=== PATIENT | male | born 1975 | race Caucasian/White ===

== ENCOUNTER 2020-06-11 07:29 | Emergency (ER) | payer BC ==
[~2020-06-11] VITALS: Ht 180.3 cm; Wt 120.2 kg
[2020-06-11 07:30] VITALS: BP_SYST 149
== END 2020-06-11 08:39 | disposition home or self-care (01) ==
LOC: SED 07:29
DX: J06.9 Acute upper respiratory infection, unspecified (principal); I10 Essential (primary) hypertension; E11.9 Type 2 diabetes mellitus without complications; Z88.1 Allergy status to other antibiotic agents; Z20.828 Contact with and (suspected) exposure to other viral communicable diseases
CPT/HCPCS: 86710; 99283; U0003; C9803

== ENCOUNTER 2021-08-07 16:07 | Emergency (ER) | payer BC, SELFPAY ==
[~2021-08-07] VITALS: Ht 180.3 cm; Wt 120.2 kg
[2021-08-07 16:10] VITALS: BP_SYST 141
[2021-08-07 18:58] LABS: BASOPHILS # (AUTO) 0.1 K/uL (0.0-0.2); BASOPHILS % (AUTO) 0.6 % (0.0-2.0); EOSINOPHILS # (AUTO) 0.4 K/uL (0.0-0.4); EOSINOPHILS % (AUTO) 3.5 % (0.0-4.0); HEMATOCRIT 41.6 % (36-54); HEMOGLOBIN 13.8 g/dL (14.0-18.0); LYMPHOCYTES # (AUTO) 1.3 K/uL (1.0-5.5); LYMPHOCYTES % (AUTO) 12.4 % (20.5-51.5); MEAN CORPUSCULAR HEMOGLOBIN 29 pg (27-31); MEAN CORPUSCULAR HGB CONC 33 % (32-36); MEAN CORPUSCULAR VOLUME 88 fL (79.0-98.0); MONOCYTES # (AUTO) 0.5 K/uL (0.0-1.0); NEUTROPHILS # (AUTO) 8.3 K/uL (1.8-7.7); NEUTROPHILS % (AUTO) 78.5 % (40.0-70.0); PLATELET COUNT (AUTO) 283 K/uL (130-430); RED BLOOD CELL COUNT(AUTO) 4.73 MIL/uL (4.2-6.2); WHITE BLOOD COUNT (AUTO) 10.5 K/uL (4.8-10.8)
[2021-08-07 19:16] LABS: CALCIUM 9.2 mg/dL (8.4-11.0); CREATININE 0.89 mg/dL (0.55-1.30)
[2021-08-07 19:20] LABS: ALBUMIN 3.5 g/dL (3.4-4.8); TOTAL BILIRUBIN 0.2 mg/dL (0.0-1.0)
[2021-08-07] MEDS ORDERED: MORPHINE 4 MG INJ. 4 MG/ML VIAL IVP ONE (21:30)
[2021-08-07] MEDS ORDERED: VANCOMYCIN HCL 1,000 MG in NS 250 ML IV ONE (21:30)
[2021-08-07] MEDS ORDERED: VANCOMYCIN HCL 1000 MG/VIAL IV ONE (23:04)
[2021-08-08] MEDS ORDERED: ACETAMINOPHEN 500 MG TABLET PO ONE (00:30)
[2021-08-08] MEDS ORDERED: MORPHINE 4 MG INJ. 4 MG/ML VIAL IVP ONE (00:30)
[2021-08-08 02:30] VITALS: BP_SYST 122
[2021-08-08] MEDS ORDERED: HYDROcodone/ACETAMIN 10-325 MG TAB PO ONE (02:30)
[2021-08-08] MEDS ORDERED: NALO4SPR NS (03:23)
[2021-08-08] MEDS ORDERED: FUROSEMIDE 40 MG/4 ML VIAL IVP SCH (09:00)
== END 2021-08-08 03:45 | disposition home or self-care (01) ==
LOC: SED 16:07
DX: G89.18 Other acute postprocedural pain (principal); M54.50 Low back pain, unspecified; L03.312 Cellulitis of back [any part except buttock and flank]; I10 Essential (primary) hypertension; E11.9 Type 2 diabetes mellitus without complications; Z88.1 Allergy status to other antibiotic agents; Z98.890 Other specified postprocedural states
CPT/HCPCS: 36415; 72131; 76376; 80053; 83605; 83690; 84484; 85025; 93005; 96365; 96366; 96375 ×2; 99285; J2270 ×2; J3370

== ENCOUNTER 2022-03-19 17:58 | Observation (INO) | payer BC ==
[~2022-03-19] VITALS: Ht 180.3 cm; Wt 94.8 kg
[~2022-03-19 17:58] MED LIST: NALO4SPR NS
--- NOTE | 2022-03-19 18:08 | NUR ---
BIBS WITH C/C OF POSSIBLE OVERDOSE ON DILAUDID AND MORPHINE. HX OF LUMBAR FUSION AND CHRONIC BACK. PT TAKES PO MORPHINE AND DILAUDID. PT TOOK 2 MORPHINE TABS, 1 DILAUDID TAB, AND 1 GABAPENTIN CAPSULE AT 0700 AND THEN TOOK SAME DOSE AT 1700. PT DOES NOT KNOW EXACT DOSAGE OF MEDS TAKEN. PT HAS BEEN TAKING THESE MEDS FOR 2 DAYS NOW WITH NO EFFECT. PT NOW FEELS DIZZY, SOB, NAUSEA. REPORTS BACK PAIN 3/10. PT WAS GIVEN NARCAN NASAL SPRAY 4MG AT 1730. PT AAO X 4, FEELS VERY DROWSY.
[2022-03-19 18:13] VITALS: BP_SYST 142
--- NOTE | 2022-03-19 18:24 | NUR ---
PLACED PT IN BED 1, REPORT GIVEN TO Nathan PT CORRECTED THE AMOUNT OF MORPHINE THAT HE TOOK AND STATED HE TOOK 1 MORPHINE TAB, 1 DILAUDID TAB, AND 1 GABAPENTIN CAPSULE BOTH IN MORNING AND AT 1700 TODAY.
[2022-03-19 18:54] LABS: BASOPHILS # (AUTO) 0.1 K/uL (0.0-0.2); BASOPHILS % (AUTO) 0.8 % (0.0-2.0); EOSINOPHILS # (AUTO) 0.3 K/uL (0.0-0.4); EOSINOPHILS % (AUTO) 3.5 % (0.0-4.0); HEMATOCRIT 42.7 % (36-54); LYMPHOCYTES # (AUTO) 1.4 K/uL (1.0-5.5); LYMPHOCYTES % (AUTO) 15.5 % (20.5-51.5); MEAN CORPUSCULAR VOLUME 86 fL (79.0-98.0); MONOCYTES # (AUTO) 0.5 K/uL (0.0-1.0); MONOCYTES % (AUTO) 5.4 % (1.7-9.3); NEUTROPHILS # (AUTO) 6.8 K/uL (1.8-7.7); NEUTROPHILS % (AUTO) 74.8 % (40.0-70.0); PLATELET COUNT (AUTO) 187 K/uL (130-430); RED BLOOD CELL COUNT(AUTO) 4.99 MIL/uL (4.2-6.2); RED CELL DISTRIBUTION WIDTH 14.1 % (9.0-15.0); WHITE BLOOD COUNT (AUTO) 9.2 K/uL (4.8-10.8)
--- NOTE | 2022-03-19 19:22 | NUR ---
report given to donato russ
--- NOTE | 2022-03-19 19:30 | NUR ---
Received report on pt from day shift RN. EKG done given to .
[2022-03-19 19:45] LABS: ANION GAP 9 (5-15); CALCIUM 9.5 mg/dL (8.4-11.0); CHLORIDE 102 mmol/L (98-107); CREATININE 0.98 mg/dL (0.55-1.30); GLUCOSE 146 mg/dL (70-99); POTASSIUM 3.7 mmol/L (3.5-5.1); SODIUM SERUM 138 mmol/L (136-145); UREA NITROGEN, BLOOD 16 mg/dL (8-21)
[2022-03-19 19:50] LABS: ALANINE AMINOTRANSFERASE 32 U/L (12-78); ALBUMIN 3.5 g/dL (3.4-4.8); ASPARTATE AMINOTRANSFERASE 16 U/L (10-37); TOTAL BILIRUBIN 0.8 mg/dL (0.0-1.0)
[2022-03-19 20:04] LABS: ACETAMINOPHEN < 1 ug/mL (1-30); ALCOHOL, BLOOD < 3 mg/dL (<10); GFR AFRICAN AMERICAN 105 mL/min (>90)
[2022-03-19] MEDS ORDERED: ONDANSETRON HCL 4 MG/2 ML VIAL IVP ONE (21:00)
[2022-03-19] MEDS ORDERED: NACL 0.9% 1,000 ML IV ONE (21:00)
[2022-03-19] MEDS ORDERED: KETOROLAC TROMETHAMINE 30 MG VIAL IVP ONE (21:00)
--- NOTE | 2022-03-19 22:00 | NUR ---
Tele Admit orders received from Dr Jama.
--- NOTE | 2022-03-19 22:10 | NUR ---
Covid 19 test collected and sent to lab.
--- NOTE | 2022-03-19 22:31 | NUR ---
Admit bed requested Patient will be admitted to care of . Admitted to TELE unit. Diagnosis [facility] Inpatient (Yes or No)N Observation (Yes or No) Y Orientation concerns or request close to nursing station (Yes or No) Y Covid Status PENDING On vent or bipap NO Isolation requirements NO Needs a sitter NO From Home (Yes or if No enter name of facility) HOME Requires Dialysis (Yes or No) NO Med Rec Completed (Yes of No) NO
[2022-03-19 22:40] LABS: BILIRUBIN,URINE NEGATIVE (NEGATIVE); BLOOD, URINE NEGATIVE (NEGATIVE); CLARITY/URINE CLEAR (CLEAR); COLOR,URINE YELLOW (YELLOW); GLUCOSE,URINE NEGATIVE (NEGATIVE); KETONES,URINE NEGATIVE (NEGATIVE); LEUKOCYTE ESTERASE ,URINE NEGATIVE (NEGATIVE); NITRITE, URINE NEGATIVE (NEGATIVE); PH,URINE 7.5 (5.0-8.0); PROTEIN URINE NEGATIVE (NEGATIVE); UROBILINOGEN,URINE 0.2 (0.2-1.0)
[2022-03-19 23:29] LABS: BARBITURATE, URINE NEGATIVE (NEG <=200); BENZODIAZEPINE, URINE NEGATIVE (NEG <=150); CANNABINOID, URINE POSITIVE (NEG <=50); COCAINE, URINE NEGATIVE (NEG <=150); METHAMPHETAMINES SCREEN,URINE NEGATIVE (NEG <=500); OPIATE, URINE POSITIVE (NEG <=100); PHENCYCLIDINE SCREEN,URINE NEGATIVE (NEG <=25); UR TRICYCLIC ANTIDEPRESSANTS NEGATIVE (NEG <=300); URINE AMPHETAMINE NEGATIVE (NEG <=500); URINE METHADONE NEGATIVE (NEG <=200); URINE OXYCODONE SCREEN POSITIVE (NEG <=100); URINE PROPOXYPHENE SCREEN NEGATIVE (NEG <=300)
--- NOTE | 2022-03-20 00:10 | NUR ---
Patient will be admitted to care of Dr Jama. Admitted to Tele unit. Will go to room 111B. Belongings list completed. Complete and up to date summary report printed. SBAR report given at bedside to Jame BAXTER, with opportunity for questions.
[2022-03-20 00:35] VITALS: BP_SYST 116
[2022-03-20 00:40] VITALS: BP_SYST 124
[2022-03-20 00:45] VITALS: BP_SYST 127
[2022-03-20] MEDS ORDERED: KETOROLAC TROMETHAMINE 30 MG VIAL ONE (00:48)
[2022-03-20] MEDS ORDERED: ONDANSETRON HCL 4 MG/2 ML VIAL ONE (00:49)
[2022-03-20 00:52] VITALS: BP_SYST 116
--- NOTE | 2022-03-20 07:35 | NUR ---
Received patient in bed aao x 4, vital signs within normal limits bp 124/65, temp 97.9, hr 76, respiration 20, saturation 100% on room air. Patient made his intention known to get discharged by the Doctor immediately, patient state "i don't know what am doing here, this is just for observation, I must go home today because my son turns 27 years old today" (Showing Nurse to tattoo to left arm , for the significance of today) Patient continued to explain he has to be in [employer] today at 1400hrs and he must leave. Explained to patient that it's the beginning of shift and the Doctor's will be making rounds around 9am, 10 am or 11 am depending on the Doctor. Inform patient will let the Doctor know as soon as I pass my morning meds as patient care is priority. Patient agreed.
[2022-03-20 09:01] LABS: ALBUMIN 3.5 g/dL (3.4-4.8); CALCIUM 9.2 mg/dL (8.4-11.0); CREATININE 0.89 mg/dL (0.55-1.30); POTASSIUM 3.8 mmol/L (3.5-5.1); TOTAL BILIRUBIN 0.9 mg/dL (0.0-1.0)
--- NOTE | 2022-03-20 09:05 | NUR ---
0900: Patient's came, asked for water while taking care of another patient, gave ice water to , also asked for his food, gave patient breakfast, was asking when patient will be discharged, inform there is no discharge orders as patient is still on observation, patient states "i want to leave , cos i can't miss my son's birthday, today is important to me" Informed that patient will be leaving AMA, patient states "I don't care" in a passive aggressive way. Calmed patient down. Patient then complained he has not been given pain meds since yesterday and his own pain management Doctor told im to be on Dilaudid and we can get orders from him. Inform we can't do that. Patient appear very anxious to leave and at the bedside inform RN he has to be at his son's birthday alliance party and he can't miss it.
[2022-03-20 09:24] LABS: BASOPHILS % (AUTO) 0.5 % (0.0-2.0); EOSINOPHILS # (AUTO) 0.4 K/uL (0.0-0.4); EOSINOPHILS % (AUTO) 4.9 % (0.0-4.0); HEMATOCRIT 44.9 % (36-54); LYMPHOCYTES # (AUTO) 2.1 K/uL (1.0-5.5); LYMPHOCYTES % (AUTO) 23.4 % (20.5-51.5); MEAN CORPUSCULAR VOLUME 86 fL (79.0-98.0); MONOCYTES # (AUTO) 0.6 K/uL (0.0-1.0); MONOCYTES % (AUTO) 6.8 % (1.7-9.3); NEUTROPHILS # (AUTO) 5.8 K/uL (1.8-7.7); NEUTROPHILS % (AUTO) 64.4 % (40.0-70.0); PLATELET COUNT (AUTO) 209 K/uL (130-430); RED BLOOD CELL COUNT(AUTO) 5.23 MIL/uL (4.2-6.2); RED CELL DISTRIBUTION WIDTH 14.1 % (9.0-15.0)
--- NOTE | 2022-03-20 10:55 | NUR ---
Patient just complained of ant's in the room at this time when Nurse came to discharge patient AMA. Offered to switch room, patient refused. Patient refused to sign AMA paperwork. Charge Nurse Notified.
--- NOTE | 2022-03-20 11:00 | NUR ---
Transition Nurse Edwige made aware that patient refused to sign AMA, and just barely complained of ants in the room when Nurse came in to discharge AMA. Patient refused to sign AMA paperwork.
== END 2022-03-20 10:55 | disposition left against medical advice (07) ==
LOC: SED 17:58 → STU 22:01
PROVIDERS: ADMIT Internal Medicine; ATTEND Internal Medicine
DX: T50.901A Poisoning by unspecified drugs, medicaments and biological substances, accidental (unintentional), initial encounter (principal); Z20.822 Contact with and (suspected) exposure to COVID-19; I10 Essential (primary) hypertension; E11.9 Type 2 diabetes mellitus without complications; Z53.29 Procedure and treatment not carried out because of patient's decision for other reasons; Z88.0 Allergy status to penicillin
CPT/HCPCS: 96361; 96374; 96375; 80307; 80053 ×2; 83880; 85025 ×2; 85379; 84484; 36415 ×2; 93005; 71045; 70450; 76376; 99285; 81003; 87426; G0480; G0481; G0482; G0378 ×2; J1885; J2405